=== PATIENT | female | born 1980 | race Caucasian/White ===

== ENCOUNTER 2020-12-27 18:42 | Emergency (ER) | payer MEDICAID ==
[~2020-12-27] VITALS: Ht 149.9 cm; Wt 54.4 kg
[2020-12-27 19:07] VITALS: BP 161/81
--- NOTE | 2020-12-27 19:17 | NUR ---
Patient ambulated to bed 04 with steady/even gait.
--- NOTE | 2020-12-27 20:09 | NUR ---
40 Y/O FEMALE PT CAME TO THE ED C/O EAR PAIN. PT STATES "RINGING IN THE EAR" AND 6-7/10 PAIN. DENIES N/V/D; SKIN IS PINK/WARM/DRY; AAOX4 WITH EVEN AND STEADY GAIT; LUNGS CLEAR BL; HR EVEN AND REGULAR; PT DENIES ANY FEVER, CP, SOB, OR COUGH AT THIS TIME; VSS; PATIENT POSITIONED FOR COMFORT; HOB ELEVATED; BEDRAILS UP X2; BED DOWN. ER MD MADE AWARE OF PT STATUS. NKA PMH: DENIES
--- NOTE | 2020-12-27 20:50 | NUR ---
PT L EAR IRRIGATED WITH WATER AND HYDROGEN PEROXIDE. PT UNABLE TO TOLERATE PROCEDURE DUE TO PAIN, PT STATED SHE DID NOT FEEL RELIEF AFTER PROCEDURE HALTED. MADE AWARE
[2020-12-27] MEDS ORDERED: NAPR-54 PO (21:12)
[2020-12-27] MEDS ORDERED: CARB15DR61 OT (21:12)
[2020-12-27 21:28] VITALS: BP 161/81
--- NOTE | 2020-12-27 21:29 | NUR ---
Patient discharged with v/s stable. Written and verbal after care instructions given and explained. Patient alert, oriented and verbalized understanding of instructions. Ambulatory with steady gait. All questions addressed prior to discharge. ID band removed. Patient advised to follow up with PMD. Rx of NAPROXEN AND DEBROX given. Patient educated on indication of medication including possible reaction and side effects. Opportunity to ask questions provided and answered.
== END 2020-12-27 21:30 | disposition home or self-care (01) ==
LOC: MED 18:42
DX: H61.22 Impacted cerumen, left ear (principal); Z79.899 Other long term (current) drug therapy; Z98.890 Other specified postprocedural states
CPT/HCPCS: 99282

== ENCOUNTER 2022-01-18 12:28 | Emergency (ER) | payer MEDICAID ==
[~2022-01-18] VITALS: Ht 149.9 cm; Wt 58.5 kg
[~2022-01-18 12:28] MED LIST: CARB15DR61 OT; NAPR-54 PO
[2022-01-18 12:35] VITALS: BP 123/81
--- NOTE | 2022-01-18 13:21 | NUR ---
PT AMBULATED TO BED 8 WIH STEADY GAIT
[2022-01-18 13:25] LABS: BASOPHILS % (AUTO) 0.6 % (0.0-2.0); EOSINOPHILS # (AUTO) 0.1 K/uL (0-0.4); EOSINOPHILS % (AUTO) 1.9 % (0.0-4.0); HEMATOCRIT 34.2 % (36-48); HEMOGLOBIN 11.4 g/dL (12.0-16.0); LYMPHOCYTES # (AUTO) 1.8 K/uL (2.5-16.5); LYMPHOCYTES % (AUTO) 31.1 % (20.5-51.1); MEAN CORPUSCULAR HEMOGLOBIN 30 pg (27-31); MEAN CORPUSCULAR HGB CONC 33 g/dL (33-37); MEAN CORPUSCULAR VOLUME 88.7 fL (80-94); MONOCYTES # (AUTO) 0.4 K/uL (0.8-1.0); MONOCYTES % (AUTO) 6.5 % (1.7-9.3); NEUTROPHILS # (AUTO) 3.4 K/uL (1.8-7.7); NEUTROPHILS % (AUTO) 59.9 % (42.2-75.2); PLATELET COUNT (AUTO) 287 K/uL (140-450); RED BLOOD CELL COUNT(AUTO) 3.86 MIL/uL (4.20-5.40); WHITE BLOOD COUNT (AUTO) 5.7 K/uL (4.8-10.8)
--- NOTE | 2022-01-18 13:26 | NUR ---
41 Y/O FEMALE BIB SELF C/O INCREASED VAGINAL BLEEDING. STATED THAT THEY HAD THEIR MENSTRUAL PERIOD LAST WEEK BUT IT USUALLY LASTS 3 DAYS, PT NOW CONTINUED TO HAVE HEAVY BLEEDING USING 4 PADS A DAY. CRAMPING PAIN /10. RESPIRATIONS EVEN AND UNLABORED, DENIES ANY SOB, DIZZINESS. NKA PMH: DENIED
--- NOTE | 2022-01-18 13:57 | NUR ---
ER AT BEDSIDE
--- NOTE | 2022-01-18 14:08 | NUR ---
ER MD TRAN PELVIC DONE LUCIAN [employer]
[2022-01-18 14:09] LABS: ALBUMIN 3.6 g/dL (3.4-5.0); ANION GAP 11.6 (8-16); CARBON DIOXIDE 25.4 mmol/L (21-32); CREATININE 0.6 mg/dL (0.6-1.3); TOTAL BILIRUBIN 0.2 mg/dL (0.0-1.0)
--- NOTE | 2022-01-18 14:33 | NUR ---
Patient discharged with v/s stable. Written and verbal after care instructions given and explained. Patient verbalized understanding. Ambulatory with steady gait. All questions addressed prior to discharge. Advised to follow up with PMD.
--- NOTE | 2022-01-18 14:33 | NUR ---
The patient's care was reviewed and supervised by Coy Tolbert RN.
[2022-01-18 17:01] LABS: APPEARANCE,URINE CLEAR (CLEAR); BILIRUBIN,URINE NEGATIVE (NEGATIVE); BLOOD, URINE 3+ (NEGATIVE); COLOR,URINE YELLOW (YELLOW); LEUKOCYTE ESTERASE ,URINE NEGATIVE (NEGATIVE); NITRITE, URINE NEGATIVE (NEGATIVE); UGLUCOSE NEGATIVE (NEGATIVE)
[2022-01-18 17:30] LABS: RBC,URINE 50-80 /HPF (0-5); WBC,URINE NONE SEEN /HPF (0-5)
== END 2022-01-18 14:33 | disposition home or self-care (01) ==
LOC: MED 12:28
DX: N93.9 Abnormal uterine and vaginal bleeding, unspecified (principal); Z98.890 Other specified postprocedural states
CPT/HCPCS: 36415; 80053; 81001; 81025; 85025; 99285

== ENCOUNTER 2022-11-20 06:19 | Emergency (ER) | payer MEDICAID ==
[~2022-11-20] VITALS: Ht 149.9 cm; Wt 56.7 kg
[2022-11-20 06:20] VITALS: BP 130/89
--- NOTE | 2022-11-20 06:23 | NUR ---
TO LOBBY A/W BED AMBULATORY
--- NOTE | 2022-11-20 06:30 | NUR ---
SEEN AND EXAMINED BY KATEY
[2022-11-20] MEDS ORDERED: HYDROcodone/APAP 5/325 MG 1 TAB TAB PO ONE (06:45)
--- NOTE | 2022-11-20 06:45 | NUR ---
MEDICATED PER ERMDS ORDER, TOLERATED WELL
[2022-11-20 07:01] VITALS: BP 130/89
== END 2022-11-20 07:01 | disposition home or self-care (01) ==
LOC: MED 06:19
DX: G44.209 Tension-type headache, unspecified, not intractable (principal); H11.32 Conjunctival hemorrhage, left eye; Z98.890 Other specified postprocedural states; Z79.899 Other long term (current) drug therapy; Z79.1 Long term (current) use of non-steroidal anti-inflammatories (NSAID)
CPT/HCPCS: 99283